=== PATIENT | female | born 1995 | race Caucasian/White ===

== ENCOUNTER 2020-02-09 03:14 | Emergency (ER) | payer BC, OTHER ==
[2020-02-09] MEDS ORDERED: ONDANSETRON 4 MG/2 ML VIAL ONE (04:26)
[2020-02-09] MEDS ORDERED: NA CHLORIDE 0.9% 2,000 ML ONE (04:26)
[2020-02-09 04:58] LABS: Absolute Lymphocytes (CBC) 1.2 K/uL (0.7-4.9); Basophils % 0.3 % (0-1.3); Hematocrit 40.2 % (36.0-45.0); Lymphocytes % 9.7 % (15.3-44.8); MPV 7.8 fL (7.6-11.3)
[2020-02-09 05:32] LABS: ALT/SGPT 27 U/L (12-78); AST/SGOT 22 U/L (15-37); Albumin 3.8 g/dL (3.4-5.0); Alkaline Phosphatase 56 U/L (45-117); BUN Blood Urea Nitrogen 11 mg/dL (7-18); Bicarbonate 22 mmol/L (21-32); Bilirubin Direct 0.1 mg/dL (0-0.2); Bilirubin Total 0.7 mg/dL (0.2-1.0); Glucose Level 111 mg/dL (74-106); Lipase 125 U/L (73-393); Potassium 3.5 mmol/L (3.5-5.1); Protein, Total 8.3 g/dL (6.4-8.2); Sodium Level 134 mmol/L (136-145); Troponin (Emerg Dept Use Only) < 0.02 ng/mL (0.0-0.045)
[2020-02-09 05:40] LABS: Protime INR 1.21
[2020-02-09 06:20] LABS: Urine Blood 2+ (NEG); Urine Glucose NEGATIVE (NEG); Urine Protein 1+ (NEG)
[2020-02-09 06:21] LABS: Urine Culture Reflex Order REFLEXED
[2020-02-09 06:22] LABS: Urine Bacteria 20-50 /HPF (<20)
--- NOTE | 2020-02-09 06:33 | EDPHYS ---
Physician Documentation [facility] Name: Miranda Cruz Age: 24 yrs Sex: Female : 1995 Arrival Date: 02/09/2020 Time: 03:17 Bed 7 Private MD: ED Physician Fernando Diana HPI: 02/08 04:29 This 24 yrs old Female presents to ER via Wheelchair with complaints of pkl Passed Out Prior To Arrival, Fever, Dizziness. 04:29 The patient has experienced syncope, became unresponsive. Onset: The symptoms/episode pkl began/occurred 2 day(s) ago. Associated signs and symptoms: Pertinent positives: nausea, vomiting, fever, chills, sore throat, vaginal sores and pain. Patient said she had 2 episodes of syncope, one yesterday and one tonight. Room mate found her on the floor tonight. Uncertain how long she passed out.. 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 - Social history:: Smoking status: Patient denies any tobacco usage or history of. ROS: 04:29 Eyes: Negative for injury, pain, redness, and discharge. pkl 04:29 ENT: Positive for sore throat. 04:29 Neck: Negative for stiffness. 04:29 Cardiovascular: Negative for chest pain. 04:29 Respiratory: Negative for cough, shortness of breath. 04:29 Abdomen/GI: Positive for nausea and vomiting. 04:29 Back: Negative for acute changes. 04:29 : Negative for urinary symptoms. 04:29 : Positive for vaginal sores and pain. 04:29 MS/extremity: Negative for acute changes. 04:29 Skin: Negative for rash. 04:29 Neuro: Positive for syncope. Exam: 04:29 Abdomen/GI: Bowel sounds: normal, Palpation: abdomen is soft and non-tender, in all pkl quadrants. 04:29 Head/Face: Normocephalic, atraumatic. Eyes: Pupils equal round and reactive to light, extra-ocular motions intact. Lids and lashes normal. Conjunctiva and sclera are non-icteric and not injected. Cornea within normal limits. Periorbital areas with no swelling, redness, or edema. 04:29 ENT: Posterior pharynx: erythema, that is mild. 04:29 Neck: Exam negative for nuchal rigidity. 04:29 Chest/axilla: Exam negative for acute changes. 04:29 Cardiovascular: Rate: tachycardic, actual rate is 100 bpm, Rhythm: regular. 04:29 ECG was reviewed by the Attending Physician. 04:29 Respiratory: the patient does not display signs of respiratory distress, Respirations: normal, Breath sounds: are clear throughout. 04:29 Abdomen/GI: Bowel sounds: normal, Palpation: abdomen is soft and non-tender, in all quadrants. 04:29 Back: Exam negative for acute changes. 04:29 : Pelvic Exam: External exam: herpes lesions noted. 04:29 Musculoskeletal/extremity: Exam is negative for acute changes. 04:29 Skin: Exam negative for rash. 04:29 Neuro: Orientation: is normal, Mentation: is normal, Memory: is normal, Cranial nerves: grossly normal, Motor: is normal, Sensation: is normal. Vital Signs: 03:30 BP 123 / 66; Pulse 100; Resp 17; Temp 99.5; Pulse Ox 96% on R/A; tt3 05:12 BP 115 / 86; Pulse 79; Resp 18; Pulse Ox 97% ; ea 05:49 BP 128 / 76; Pulse 96; Resp 18; Pulse Ox 96% ; ea 06:08 BP 106 / 52; Pulse 94; Resp 16; Pulse Ox 98% ; ea MDM: 03:54 Patient medically screened. pkl 06:27 Data reviewed: vital signs, nurses notes, lab test result(s), radiologic studies, CT pkl scan, plain films. ED course: Patient feeling better. Discussed lab and imaging studies with patient. Advised patient to stay home until Covid - 19 test is available. Patient understood instructions. 02/08 03:43 Order name: COVID-19 02/08 03:43 Order name: Flu; Complete Time: 05:57 ea 02/08 03:43 Order name: Strep; Complete Time: 05:57 02/08 03:45 Order name: Blood Culture Adult (2) 02/08 03:45 Order name: BMP; Complete Time: 05:37 02/08 03:45 Order name: C-Reactive Protein; Complete Time: 05:37 02/08 03:45 Order name: CBC with Diff; Complete Time: 05:17 02/08 03:45 Order name: Ferritin; Complete Time: 05:37 02/08 03:45 Order name: Lactate; Complete Time: 05:17 02/08 03:45 Order name: LFT's; Complete Time: 05:37 02/08 03:45 Order name: Lipase; Complete Time: 05:37 02/08 03:45 Order name: Procalcitonin; Complete Time: 05:57 02/08 03:45 Order name: PT-INR; Complete Time: 05:41 02/08 03:43 Order name: CXR XRAY 02/08 03:45 Order name: Ptt, Activated; Complete Time: 05:41 02/08 03:45 Order name: Troponin (emerg Dept Use Only); Complete Time: 05:37 02/08 03:45 Order name: Urine Microscopic Only; Complete Time: 06:23 02/08 03:45 Order name: EKG; Complete Time: 03:45 02/08 04:43 Order name: CT Head Brain wo Cont pkl 02/08 05:51 Order name: Throat Culture [facility] 02/08 06:06 Order name: Miscellaneous Micro Reference [facility] 02/08 06:17 Order name: Urine --Ancillary (enter results); Complete Time: 06:23 02/08 06:17 Order name: Urine Dipstick--Ancillary (enter results); Complete Time: 06:23 02/08 06:24 Order name: Urine Culture [facility] 02/08 03:43 Order name: Droplet/Contact Precautions; Complete Time: 05:58 02/08 03:43 Order name: Labs collected and sent; Complete Time: 04:54 02/08 03:43 Order name: O2 Per Protocol; Complete Time: 04:54 02/08 03:45 Order name: Cardiac monitoring; Complete Time: 04:54 02/08 03:45 Order name: EKG - Nurse/Tech; Complete Time: 03:51 02/08 03:45 Order name: IV Start; Complete Time: 04:54 02/08 03:45 Order name: Urine Dipstick-Ancillary (obtain specimen); Complete Time: 05:57 ea Administered Medications: 04:45 Drug: NS 0.9% 1000 ml Route: IV; Rate: 1000 ml; Site: right forearm; ea 05:58 Follow up: Response: No adverse reaction; IV Status: Completed infusion; IV Intake: ea 1000ml 04:45 Drug: NS 0.9% 1000 ml Route: IV; Rate: 125 ml/hr; Site: right forearm; ea 04:45 Drug: Zofran (Ondansetron) 4 mg Route: IVP; Site: right forearm; ea 05:57 Follow up: Response: No adverse reaction; Nausea is decreased ea 06:54 Drug: Cipro 500 mg Route: PO; ea 06:54 Follow up: Response: Medication administered at discharge. ea Disposition: 02/09/20 06:32 Discharged to Home. Impression: Syncope. Fever. Chills. Urinary tract infection. Herpes genitalia. - Condition is Stable. - Prescriptions for Cipro 500 mg Oral Tablet - take 1 tablet by ORAL route every 12 hours for 7 days; 14 tablet. Acyclovir 400 mg Oral Tablet - take 1 tablet by ORAL route every 8 hours for 10 days; 30 tablet. - Medication Reconciliation Form, Thank You Letter, Antibiotic Education, Prescription Opioid Use form. - Follow up: Private Physician; When: 2 - 3 days; Reason: Re-evaluation by your physician. - Problem is new. - Symptoms have improved. Signatures: Dispatcher [employer] [facility] Fernando Diana MD MD pkl Antunez, Elena RN KARSTEN patton Corrections: (The following items were deleted from the chart) 04:59 03:45 D-DIMER+COAG.LAB.BRZ ordered. EDCT EDMS 06:06 04:58 Miscellaneous Lab Test+R.LAB.BRZ ordered. [facility] EDMS 06:56 06:32 02/09/2020 06:32 Discharged to Home. Impression: Syncope. Fever. Chills. Urinary ea tract infection. Herpes genitalia. Condition is Stable. Forms are Medication Reconciliation Form, Thank You Letter, Antibiotic Education, Prescription Opioid Use. Follow up: Private Physician; When: 2 - 3 days; Reason: Re-evaluation by your physician. Problem is new. Symptoms have improved. pkl
--- NOTE | 2020-02-09 06:33 | ER ---
Nurse's Notes [facility] Name: Miranda Cruz Age: 24 yrs Sex: Female : 1995 Arrival Date: 02/09/2020 Time: 03:17 Bed 7 Private MD: Diagnosis: Syncope. Fever. Chills. Urinary tract infection. Herpes genitalia Presentation: 02/08 03:46 Chief complaint: Patient states: Reports feeling dizzy, fever, nausea and vomiting for ea the past three days. Reports she passed out prior to arrival. Coronavirus screen: Patient reports shortness of breath or difficulty breathing. Patient reports a measured and/or subjective temperature greater than 100.4F. Ebola Screen: No symptoms or risks identified at this time. Initial Sepsis Screen: Does the patient meet any 2 criteria? HR > 90 bpm. Does the patient have a suspected source of infection? No. Patient's initial sepsis screen is negative. Risk Assessment: Do you want to hurt yourself or someone else? Patient reports no desire to harm self or others. Onset of symptoms was February 09, 2020. 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 - Social history:: Smoking status: Patient denies any tobacco usage or history of. Screenin:31 Abuse screen: Denies threats or abuse. Nutritional screening: No deficits noted. ea Tuberculosis screening: No symptoms or risk factors identified. 03:49 Fall Risk None identified. ea Assessment: 04:00 General: Appears uncomfortable, Behavior is appropriate for age. Pain: Complains of ea pain in groin. Neuro: Level of Consciousness is awake, alert, obeys commands, Oriented to person, place, time. Cardiovascular: Patient's skin is warm and dry. Respiratory: Airway is patent Respiratory effort is even, unlabored, Respiratory pattern is regular, symmetrical. : Lesions noted Reports pain genitalia. Derm: Skin is dry, Skin is pale, Skin temperature is warm. 05:11 Reassessment: Patient and/or family updated on plan of care and expected duration. Pain ea level reassessed. Patient is alert, oriented x 3, equal unlabored respirations, skin warm/dry/pink. 06:08 Reassessment: Patient and/or family updated on plan of care and expected duration. Pain ea level reassessed. Patient is alert, oriented x 3, equal unlabored respirations, skin warm/dry/pink. 06:55 Reassessment: Patient and/or family updated on plan of care and expected duration. Pain ea level reassessed. Patient is alert, oriented x 3, equal unlabored respirations, skin warm/dry/pink. Discharge instruction given to patient, verbalized the understanding of instruction. Pt left ED ambulatory tolerating well . Vital Signs: 03:30 BP 123 / 66; Pulse 100; Resp 17; Temp 99.5; Pulse Ox 96% on R/A; tt3 05:12 BP 115 / 86; Pulse 79; Resp 18; Pulse Ox 97% ; ea 05:49 BP 128 / 76; Pulse 96; Resp 18; Pulse Ox 96% ; ea 06:08 BP 106 / 52; Pulse 94; Resp 16; Pulse Ox 98% ; ea ED Course: 03:17 Patient arrived in ED. bp1 03:30 Kylee Walton, KARSTEN is Primary Nurse. ea 03:48 Triage completed. ea 03:48 Patient has correct armband on for positive identification. Bed in low position. Call ea light in reach. Side rails up X2. 03:48 Arm band placed on right wrist. Patient placed in an exam room, on a stretcher, on ea pulse oximetry. 03:54 Fernando Diana MD is Attending Physician. pkl 04:15 CXR XRAY In Process Unspecified. EDMS 04:25 Inserted saline lock: 20 gauge in right forearm, using aseptic technique. Blood ea collected. 05:17 CT Head Brain wo Cont In Process Unspecified. EDMS 06:55 No provider procedures requiring assistance completed. IV discontinued, intact, ea bleeding controlled, No redness/swelling at site. Pressure dressing applied. Administered Medications: 04:45 Drug: NS 0.9% 1000 ml Route: IV; Rate: 1000 ml; Site: right forearm; ea 05:58 Follow up: Response: No adverse reaction; IV Status: Completed infusion; IV Intake: ea 1000ml 04:45 Drug: NS 0.9% 1000 ml Route: IV; Rate: 125 ml/hr; Site: right forearm; ea 04:45 Drug: Zofran (Ondansetron) 4 mg Route: IVP; Site: right forearm; ea 05:57 Follow up: Response: No adverse reaction; Nausea is decreased ea 06:54 Drug: Cipro 500 mg Route: PO; ea 06:54 Follow up: Response: Medication administered at discharge. ea Intake: 05:58 IV: 1000ml; Total: 1000ml. ea Outcome: 06:32 Discharge ordered by . bola 06:55 Discharged to home ambulatory, with family. ea 06:55 Condition: stable 06:55 Discharge instructions given to patient, Instructed on discharge instructions, follow up and referral plans. medication usage, Demonstrated understanding of instructions, follow-up care, medications, Prescriptions given X 2. 06:56 Patient left the ED. ea Addendum: 02/14/2020 11:47 Addendum: COVID-19 Result: Negative result given to RN to notify pt. Attempted to d m5 contact pt regarding negative COVID-19 swab results. Left voice mail. 11:51 Addendum: COVID-19 Result: Negative result given to RN to notify pt. Notified pt of d m5 negative COVID 19 swab results. Pt advised that even with a negative test result they should remain in isolation until symptom free for 3 days without medication. Pt also advised to return to the ED for worsening symptoms. Signatures: Dispatcher [employer] Nathalie Ramirez RN RN dm5 Lam, Pin, MD MD pkl Antunez, Elena, RN RN ea Paniauga, Brittany bp1 Trim, Marcial tt3
[2020-02-09] MEDS ORDERED: CIPROFLOXACIN HCL 500 MG TAB ONE (06:40)
[2020-02-09 07:14] VITALS: TEMP 99.5
[2020-02-09 07:21] VITALS: BP 106/52; O2SAT 98
--- NOTE | 2020-02-09 08:24 | RAD REPORT ---
EXAM DESCRIPTION: RAD - Chest Single View - 02/09/2020 4:15 am CLINICAL HISTORY: COUGH Chest pain. COMPARISON: No comparisons FINDINGS: Portable technique limits examination quality. The lungs are grossly clear. The heart is normal in size. No displaced fractures. IMPRESSION: No acute intrathoracic process suspected.
--- NOTE | 2020-02-09 10:22 | RAD REPORT ---
EXAM DESCRIPTION: CT Head Without Intravenous Contrast CLINICAL HISTORY: The patient is 24 years old and is Female; Fever;Syncope TECHNIQUE: Axial computed tomography images of the head/brain without intravenous contrast. Sagitt al and coronal reformatted images were created and reviewed. This CT exam was performed using one o r more of the following dose reduction techniques: automated exposure control, adjustment of the mA and/or kV according to patient size, and/or use of iterative reconstruction technique. COMPARISON: No relevant prior studies available. FINDINGS: BRAIN: Unremarkable. The webb-white matter differentiation is preserved . No hemorrhag e. No significant white matter disease. No edema. No extra-axial fluid collections. VENTRICLES: Unremarkable. No ventriculomegaly. BONES/JOINTS: No acute fracture. SOFT TISSUES: Unremarkable. SINUSES: Unremarkable as visualized. No acute sinusitis. MASTOID AIR CELLS: Unremarkable as visualized. No mastoid effusion. ORBITS: Unremarkable as visualized. IMPRESSION: No acute intracranial findings. Electronically signed by: Isha Bosch MD 02/09/2020 5:46 AM CDT Due to temporary technical issues with the PACS/Fluency reporting system, reports are being signed by the in house radiologist without review as a courtesy to ensure prompt reporting. The interpreting r adiologist is fully responsible for the content of the report.
--- NOTE | 2020-02-10 07:35 | EKG ---
Test Date: 2020-02-09 Test Time: 03:42:10 Clerical Assistant: SUSAN MEASUREMENT RESULTS: Intervals: Rate: 97 GA: 142 QRSD: 76 QT: 336 QTc: 426 [place]: P: 58 GA: 142 QRS: 23 T: 46 INTERPRETIVE STATEMENTS: Normal sinus rhythm Normal ECG Compared to ECG 05/11/2015 19:51:44 No significant changes Electronically Signed On 02-10-20 07:32:39 CDT by Javy Nieves
== END 2020-02-09 06:56 | disposition home or self-care (01) ==
LOC: ER 03:14
DX: N39.0 Urinary tract infection, site not specified (principal); Z20.828 Contact with and (suspected) exposure to other viral communicable diseases; R50.9 Fever, unspecified; A60.00 Herpesviral infection of urogenital system, unspecified
CPT/HCPCS: 96361; 93005; 87040 ×2; 87070; 87088; 85025; 87086; 80048; 36415; 81025; 85610; 80076; 87081; 83605; 85730; 84484; 82728; 83690; 84145; 86140; 87804 ×2; 70450; 71045; 96374; 99284; U0001; J7030; J2405; 81003; 81015

== ENCOUNTER 2020-08-25 12:57 | Emergency (ER) | payer BC, SELFPAY ==
[2020-08-25 14:59] LABS: Absolute Lymphocytes (CBC) 2.7 K/uL (0.7-4.9); Basophils % 0.6 % (0-1.3); Hematocrit 43.3 % (36.0-45.0); Lymphocytes % 35.7 % (15.3-44.8); MPV 8.3 fL (7.6-11.3); RBC Red Blood Cell Count 4.77 M/uL (3.86-4.86)
[2020-08-25] MEDS ORDERED: ONDANSETRON 4 MG/2 ML VIAL ONE (15:37)
[2020-08-25] MEDS ORDERED: NA CHLORIDE 0.9% 1,000 ML ONE (15:37)
[2020-08-25 15:47] LABS: ALT/SGPT 36 U/L (12-78); AST/SGOT 13 U/L (15-37); Albumin 3.8 g/dL (3.4-5.0); Alkaline Phosphatase 46 U/L (45-117); BUN Blood Urea Nitrogen 11 mg/dL (7-18); Bicarbonate 29 mmol/L (21-32); Bilirubin Direct < 0.1 mg/dL (0-0.2); Bilirubin Total 0.3 mg/dL (0.2-1.0); Glucose Level 80 mg/dL (74-106); Lipase 175 U/L (73-393); Protein, Total 7.4 g/dL (6.4-8.2); Sodium Level 142 mmol/L (136-145)
--- NOTE | 2020-08-25 16:15 | EDPHYS ---
Physician Documentation [facility] Name: Miranda Cruz Age: 24 yrs Sex: Female : 1995 Arrival Date: 08/25/2020 Time: 13:00 Bed 10 Private MD: ED Physician Kp Fair HPI: 08/25 16:13 This 24 yrs old Female presents to ER via Ambulatory with complaints of kb Vomiting. 16:13 The patient presents to the emergency department with nausea, vomiting. Onset: The kb symptoms/episode began/occurred 4 day(s) ago. Possible causes: unknown. The symptoms are aggravated by nothing. The symptoms are alleviated by nothing. Associated signs and symptoms: Pertinent positives: nausea, vomiting. Severity of symptoms: At their worst the symptoms were moderate in the emergency department the symptoms are unchanged. The patient has not experienced similar symptoms in the past. The patient has not recently seen a physician. Pt reports she started her cycle for the first time in many years 4 days ago. States she has had lower abd cramping, nausea and vomiting since then.. SOUND TESTER: 17:03 LMP N/A - control method aa5 Historical: - Allergies: 13:29 NKA; ll1 - PMHx: 13:29 Stomach ulcer; ll1 - PSHx: 13:29 None; ll1 - Immunization history:: Flu vaccine is not up to date. - Social history:: Smoking status: Reported history of juuling and/or vaping. ROS: 16:09 Constitutional: Negative for fever, chills, and weight loss, Cardiovascular: Negative kb for chest pain, palpitations, and edema, Respiratory: Negative for shortness of breath, cough, wheezing, and pleuritic chest pain, Back: Negative for injury and pain, MS/Extremity: Negative for injury and deformity, Skin: Negative for injury, rash, and discoloration, Neuro: Negative for headache, weakness, numbness, tingling, and seizure. 16:09 Abdomen/GI: Positive for nausea and vomiting. 16:09 : Positive for vaginal bleeding. Exam: 16:09 Constitutional: This is a well developed, well nourished patient who is awake, alert, kb and in no acute distress. Head/Face: Normocephalic, atraumatic. Chest/axilla: Normal chest wall appearance and motion. Nontender with no deformity. No lesions are appreciated. Cardiovascular: Regular rate and rhythm with a normal S1 and S2. No gallops, murmurs, or rubs. Normal PMI, no JVD. No pulse deficits. Respiratory: Lungs have equal breath sounds bilaterally, clear to auscultation and percussion. No rales, rhonchi or wheezes noted. No increased work of breathing, no retractions or nasal flaring. Abdomen/GI: Soft, non-tender, with normal bowel sounds. No distension or tympany. No guarding or rebound. No evidence of tenderness throughout. Skin: Warm, dry with normal turgor. Normal color with no rashes, no lesions, and no evidence of cellulitis. MS/ Extremity: Pulses equal, no cyanosis. Neurovascular intact. Full, normal range of motion. Neuro: Awake and alert, GCS 15, oriented to person, place, time, and situation. Cranial nerves II-XII grossly intact. Motor strength 5/5 in all extremities. Sensory grossly intact. Cerebellar exam normal. Normal gait. Vital Signs: 13:29 BP 116 / 86; Pulse 82; Resp 17; Temp 98.8; Pulse Ox 100% ; Weight 74.84 kg; Height 5 ll1 ft. 2 in. (157.48 cm); Pain 5/10; 16:04 BP 109 / 59; Pulse 73; Resp 16 S; Pulse Ox 100% on R/A; aa5 13:29 Body Mass Index 30.18 (74.84 kg, 157.48 cm) ll1 MDM: 14:34 Patient medically screened. kb 16:13 Data reviewed: vital signs, nurses notes. Data interpreted: Pulse oximetry: on room air kb is 100 %. Interpretation: normal. Counseling: I had a detailed discussion with the patient and/or guardian regarding: the historical points, exam findings, and any diagnostic results supporting the discharge/admit diagnosis, lab results, the need for outpatient follow up, a family practitioner, to return to the emergency department if symptoms worsen or persist or if there are any questions or concerns that arise at home. 08/25 14:24 Order name: Basic Metabolic Panel; Complete Time: 15:51 kb 08/25 14:24 Order name: CBC with Diff; Complete Time: 15:05 kb 08/25 14:24 Order name: Hepatic Function; Complete Time: 15:51 kb 08/25 14:24 Order name: Lipase; Complete Time: 15:51 kb 08/25 14:24 Order name: IV Saline Lock; Complete Time: 15:26 kb 08/25 14:24 Order name: Labs collected and sent; Complete Time: 15:06 kb 08/25 15:07 Order name: Labs - recollect needed: green top; Complete Time: 15:26 eb Administered Medications: 15:20 Drug: Zofran (Ondansetron) 4 mg {Note: administered by MEDICAL DERMATOLOGIST.} Route: IVP; Site: left aa5 forearm; 17:00 Follow up: Response: No adverse reaction; Nausea is decreased; RASS: Alert and Calm (0) aa5 15:20 Drug: NS 0.9% 1000 ml Route: IV; Rate: 1000 ml; Site: left forearm; aa5 17:00 Follow up: Response: No adverse reaction; RASS: Alert and Calm (0); IV Status: aa5 Completed infusion; IV Intake: 1000ml Disposition: 17:19 Co-signature as Attending Physician, Kp Fair MD I agree with the assessment and kdr plan of care. Disposition: 08/25/20 16:15 Discharged to Home. Impression: Nausea and vomiting. - Condition is Stable. - Discharge Instructions: Nausea and Vomiting, Adult, [id number]. - Prescriptions for Zofran 4 mg Oral Tablet - take 1 tablet by ORAL route every 6 hours As needed; 20 tablet. - Medication Reconciliation Form, Thank You Letter, Antibiotic Education, Prescription Opioid Use form. - Follow up: Emergency Department; When: As needed; Reason: Worsening of condition. Follow up: Private Physician; When: 2 - 3 days; Reason: Recheck today's complaints, Continuance of care, Re-evaluation by your physician. Signatures: Dispatcher [employer] EDMi Jarvis, ALYSA-C FINISHER SCREWDOWN-Kp Su MD MD [facility] Miladis Madden RN RN aa5 Liliam Devlin Lynsay RN RN ll1 Corrections: (The following items were deleted from the chart) 17:03 16:15 08/25/2020 16:15 Discharged to Home. Impression: Nausea and vomiting. Condition aa5 is Stable. Forms are Medication Reconciliation Form, Thank You Letter, Antibiotic Education, Prescription Opioid Use. Follow up: Emergency Department; When: As needed; Reason: Worsening of condition. Follow up: Private Physician; When: 2 - 3 days; Reason: Recheck today's complaints, Continuance of care, Re-evaluation by your physician. kb
--- NOTE | 2020-08-25 16:15 | ER ---
Nurse's Notes [facility] Name: Miranda Cruz Age: 24 yrs Sex: Female : 1995 Arrival Date: 08/25/2020 Time: 13:00 Bed 10 Private MD: Diagnosis: Nausea and vomiting Presentation: 08/25 13:29 Chief complaint: Patient states: Lower abd pain with N/V/D for 3 days. Low grade fever ll1 last night. Blood in vomit last night. Coronavirus screen: Client denies travel out of the [place] in the last 14 days. cough unrelated to allergies, diarrhea, fatigue, headache, nausea, shaking with chills, shortness of breath, vomiting. Client presents with at least one sign or symptom that may indicate coronavirus-19. Standard/surgical mask placed on the client. Ebola Screen: Patient denies travel to an Ebola-affected area in the 21 days before illness onset. Initial Sepsis Screen: Does the patient meet any 2 criteria? No. Patient's initial sepsis screen is negative. Does the patient have a suspected source of infection? Yes: Acute abdominal pain. Risk Assessment: Do you want to hurt yourself or someone else? Patient reports no desire to harm self or others. Onset of symptoms was August 23, 2020. 13:29 Method Of Arrival: Ambulatory [facility] 13:29 Acuity: VALENTINE 3 ll1 Triage Assessment: 17:01 General: Appears in no apparent distress. Behavior is calm, cooperative, appropriate aa5 for age. Pain: Denies pain. GI: Abdomen is round Bowel sounds present X 4 quads. Abd is soft and non tender X 4 quads. Reports cramping, nausea, vomiting. 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 - Social history:: Smoking status: Reported history of juuling and/or vaping. Screenin:01 Abuse screen: Denies threats or abuse. Nutritional screening: No deficits noted. aa5 Tuberculosis screening: No symptoms or risk factors identified. Fall Risk Total Brown Fall Scale indicates No Risk (0-24 pts). Assessment: 14:50 General: Appears uncomfortable, Behavior is calm, cooperative. Pain: Complains of pain aa5 in right lower quadrant and left lower quadrant Pain currently is 5 out of 10 on a pain scale. Quality of pain is described as aching, crampy, Is continuous. Neuro: Level of Consciousness is awake, alert, obeys commands, Oriented to person, place, time, situation. Cardiovascular: Heart tones S1 S2 present Rhythm is regular. Respiratory: Airway is patent Respiratory effort is even, unlabored, Respiratory pattern is regular, symmetrical. GI: Abdomen is round non-distended, Bowel sounds present X 4 quads. Abd is soft and non tender X 4 quads. Reports diarrhea, nausea, vomiting. : No signs and/or symptoms were reported regarding the genitourinary system. EENT: No signs and/or symptoms were reported regarding the EENT system. Derm: Skin is pink, warm \T\ dry. Musculoskeletal: Range of motion: intact in all extremities. 15:20 Reassessment: Patient is alert, oriented x 3, equal unlabored respirations, skin aa5 warm/dry/pink. 16:05 Reassessment: Patient is alert, oriented x 3, equal unlabored respirations, skin aa5 warm/dry/pink. Patient states feeling better. Patient states symptoms have improved. 16:55 Reassessment: No changes from previously documented assessment. Patient states feeling aa5 better. Vital Signs: 13:29 BP 116 / 86; Pulse 82; Resp 17; Temp 98.8; Pulse Ox 100% ; Weight 74.84 kg; Height 5 ll1 ft. 2 in. (157.48 cm); Pain 5/10; 16:04 BP 109 / 59; Pulse 73; Resp 16 S; Pulse Ox 100% on R/A; aa5 13:29 Body Mass Index 30.18 (74.84 kg, 157.48 cm) ll1 ED Course: 13:00 Patient arrived in ED. mr 13:28 Arm band placed on. ll1 13:31 Triage completed. ll1 14:23 Mi Pickering FNP-C [facility]. kb 14:23 Kp Fair MD is Attending Physician. kb 14:34 Miladis Madden, KARSTEN is Primary Nurse. aa5 15:20 Lab(s) recollected, by me, sent to lab. Inserted saline lock: 20 gauge in left forearm, aa5 using aseptic technique. Blood collected. 16:59 No provider procedures requiring assistance completed. IV discontinued, intact, patient [id number] took out her own IV. Catheter intact. Gait steady our of ED. 17:01 Patient has correct armband on for positive identification. Bed in low position. Call aa5 light in reach. Side rails up X 1. Cardiac monitoring not applicable on this patient. Administered Medications: 15:20 Drug: Zofran (Ondansetron) 4 mg {Note: administered by ASSOCIATE CREATIVE DIRECTOR.} Route: IVP; Site: left aa5 forearm; 17:00 Follow up: Response: No adverse reaction; Nausea is decreased; RASS: Alert and Calm (0) aa5 15:20 Drug: NS 0.9% 1000 ml Route: IV; Rate: 1000 ml; Site: left forearm; aa5 17:00 Follow up: Response: No adverse reaction; RASS: Alert and Calm (0); IV Status: aa5 Completed infusion; IV Intake: 1000ml Intake: 17:00 IV: 1000ml; Total: 1000ml. aa5 Outcome: 16:15 Discharge ordered by MD. white 17:01 Discharged to home ambulatory. aa5 17:01 Condition: stable 17:01 Discharge instructions given to patient, Instructed on discharge instructions, follow up and referral plans. Demonstrated understanding of instructions, follow-up care, medications, Patient verbalized understanding of Isaac Pickering's verbal discharge instructions. Took out her own IV, and left ER. Gait steady. Did not wait for printed instructions or prescription. 17:03 Patient left the ED. aa5 Signatures: Mi Pickering, RANDOLPH LOCK AND DAM OPERATOR-Carly Swift mr Madden, Miladis, RN RN aa5 Jazmín Degroot, RN RN ll1 Corrections: (The following items were deleted from the chart) 22:41 16:55 Reassessment: No changes from previously documented assessment. Patient and/or aa5 family updated on plan of care and expected duration. Pain level reassessed. Patient states feeling better. aa5
[2020-08-25 17:08] VITALS: TEMP 98.8; O2SAT 100
[2020-08-25 17:09] VITALS: BP 109/59
== END 2020-08-25 17:03 | disposition home or self-care (01) ==
LOC: ER 12:57
DX: R11.2 Nausea with vomiting, unspecified (principal)
CPT/HCPCS: 36415; 80048; 80076; 83690; 85025; 96361; 96374; 99283; J2405; J7030

== ENCOUNTER 2022-04-15 09:31 | Emergency (ER) | payer BC, SELFPAY ==
[2022-04-15] MEDS ORDERED: KETOROLAC 30 MG/ML INJ ONE (10:27)
[2022-04-15] MEDS ORDERED: CYCLOBENZAPRINE 10 MG TAB ONE (10:27)
--- NOTE | 2022-04-15 10:30 | RAD REPORT ---
EXAM DESCRIPTION: CT - C Spine Wo Con - 04/15/2022 10:10 am CLINICAL HISTORY: neck pain Trauma, neck injury, pain and radiculopathy COMPARISON: <Comparisons> FINDINGS: The cervical vertebral body heights and disc spaces are maintained. No evidence of acute cervical spine fracture or subluxation. Prevertebral soft tissues are normal in thickness. Mildly prominent lymph nodes are present bilateral jugular chain, nonspecific. IMPRESSION: Negative for acute cervical spine abnormality. Mild nonspecific bilateral neck lymphadenopathy. Recommend CT soft tissue neck follow-up imaging in 6 months to ensure resolution. All CT scans are performed using dose optimization technique as appropriate and may include automated exposure control or mA/KV adjustment according to patient size.
--- NOTE | 2022-04-15 10:46 | EDPHYS ---
Physician Documentation [facility] Name: Miranda Cruz Age: 26 yrs Sex: Female : 1995 Arrival Date: 04/15/2022 Time: 09:32 Bed DIS1 Private MD: ED Physician Gael Navarro HPI: 04/15 11:48 This 26 yrs old Female presents to ER via Ambulatory with complaints of Neck Pain, kb <24hrs Old. 11:48 The patient or guardian complains of pain, swelling, tenderness. The symptoms are kb located on the left trapezius and left mid cervical area. Onset: The symptoms/episode began/occurred 2 day(s) ago, and became worse. Context: The problem was sustained at home, The neck injury/problem resulted from "sleeping wrong". Associated signs and symptoms: The patient has no apparent associated signs or symptoms, The patient denies any alcohol use. The patient is not apparently intoxicated. No neurological symptoms were experienced by the patient prior to arrival in the emergency department. The pain does not radiate. Modifying factors: The symptoms are alleviated by nothing. the symptoms are aggravated by movement, pressure. Severity of symptoms: At their worst the symptoms were moderate, in the emergency department the symptoms are unchanged. The patient has not experienced similar symptoms in the past. The patient has not recently seen a physician. 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 - Social history:: Smoking status: Patient denies any tobacco usage or history of. ROS: 11:47 Constitutional: Negative for fever, chills, and weight loss. kb 11:47 Neck: Positive for pain with movement, pain at rest, swelling, tenderness. 11:47 All other systems are negative. Exam: 11:47 Constitutional: This is a well developed, well nourished patient who is awake, alert, kb and in no acute distress. Head/Face: Normocephalic, atraumatic. ENT: Moist Mucous membranes Cardiovascular: Regular rate and rhythm with a normal S1 and S2. No gallops, murmurs, or rubs. No pulse deficits. Respiratory: Respirations even and unlabored. No increased work of breathing. Talking in full sentences Abdomen/GI: Soft, non-tender. No distention Skin: Warm, dry with normal turgor. Normal color. MS/ Extremity: Pulses equal, no cyanosis. Neurovascular intact. Full, normal range of motion. Neuro: Awake and alert, GCS 15, oriented to person, place, time, and situation. Moves all extremities. Normal gait. Psych: Awake, alert, with orientation to person, place and time. Behavior, mood, and affect are within normal limits. 11:47 Neck: External neck: swelling, that is mild, of the left mid cervical area and left trapezius, tenderness, that is moderate, of the left mid cervical area and left trapezius, C-spine: appears grossly normal, ROM/movement: pain, that is moderate, with any movement, limited range of motion, that is mild, when rotating to the left, nuchal rigidity, is not appreciated. Vital Signs: 09:54 Resp 16; Weight 78.02 kg; Height 5 ft. 2 in. (157.48 cm); Pain 6/10; ss 10:08 BP 122 / 74; Pulse 59; Resp 14; Pulse Ox 100% on R/A; ss 10:15 Temp 98.2(TE); ss 09:54 Body Mass Index 31.46 (78.02 kg, 157.48 cm) ss MDM: 09:47 Patient medically screened. 11:48 Data reviewed: vital signs, nurses notes. Data interpreted: Pulse oximetry: on room air kb is 100 %. Interpretation: normal. Counseling: I had a detailed discussion with the patient and/or guardian regarding: the historical points, exam findings, and any diagnostic results supporting the discharge/admit diagnosis, radiology results, the need for outpatient follow up, a family practitioner, to return to the emergency department if symptoms worsen or persist or if there are any questions or concerns that arise at home. 11:48 Special discussion: I discussed with the patient the need to follow-up with the PCP/specialist for the noted incidental finding on X-ray/CT scanning. 04/15 09:48 Order name: CT C Spine 04/15 10:31 Order name: CT; Complete Time: 10:35 EDMS Administered Medications: 10:34 Drug: Ketorolac 30 mg Route: IM; Site: right deltoid; ss 11:04 Follow up: Response: No adverse reaction; Marked relief of symptoms; Pain is decreased ss 10:34 Drug: Flexeril (cyclobenzaprine) 10 mg Route: PO; ss 11:04 Follow up: Response: Marked relief of symptoms; Pain is decreased ss Disposition: 13:47 PA/UNDERCOVER AGENT's history reviewed, patient interviewed, and examined. I agree with assessment [id number] and care plan and confirm the diagnosis (es) above. Attestation: The patient's history, exam findings, diagnostics, and a summary of any interventions or procedures was reviewed in detail with Mi DICKSON. Disposition Summary: 04/15/22 10:46 Discharge Ordered Location: Home kb Condition: Stable kb Diagnosis - Left neck pain kb Followup: kb - With: Emergency Department - When: As needed - Reason: Worsening of condition Followup: kb - With: Private Physician - When: 2 - 3 days - Reason: Recheck today's complaints, Continuance of care, Re-evaluation by your physician Discharge Instructions: - Discharge Summary Sheet kb - Musculoskeletal Pain kb - Muscle Strain, [id number] kb Forms: - Medication Reconciliation Form kb - Thank You Letter kb - Antibiotic Education kb - Prescription Opioid Use kb - Work release form ss Prescriptions: - Cyclobenzaprine 10 mg Oral Tablet - take 1 tablet by ORAL route every 8 hours As needed; 15 tablet; Refills: 0, kb Product Selection Permitted - Diclofenac Sodium 75 mg Oral tablet,delayed release (DR/EC) - take 1 tablet by ORAL route 2 times per day As needed; 30 tablet; Refills: 0, kb Product Selection Permitted Signatures: Dispatcher [employer] EDMS Mi Pickering FNP-C FNP-Ckb Smirch, Shelby, RN RN Gael Verma MD MD [id number]
--- NOTE | 2022-04-15 10:46 | ER ---
Nurse's Notes [facility] Name: Miranda Cruz Age: 26 yrs Sex: Female : 1995 Arrival Date: 04/15/2022 Time: 09:32 Bed DIS1 Private MD: Diagnosis: Left neck pain Presentation: 04/15 09:54 Chief complaint: Patient states: neck pain x 2 days. Is progressively getting worse. ss Coronavirus screen: Client denies travel out of the [place] in the last 14 days. Ebola Screen: Patient denies exposure to infectious person. Patient denies travel to an Ebola-affected area in the 21 days before illness onset. Initial Sepsis Screen: Does the patient meet any 2 criteria? No. Patient's initial sepsis screen is negative. Does the patient have a suspected source of infection? No. Patient's initial sepsis screen is negative. Risk Assessment: Do you want to hurt yourself or someone else? Patient reports no desire to harm self or others. Onset of symptoms was April 13, 2022. 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 - Social history:: Smoking status: Patient denies any tobacco usage or history of. Screenin:00 Abuse screen: Denies threats or abuse. Denies injuries from another. Nutritional ss screening: No deficits noted. Tuberculosis screening: Never had TB. Fall Risk None identified. Assessment: 10:00 General: Appears uncomfortable, Behavior is calm, cooperative, Denies fever. Pain: ss Complains of pain in neck Pain currently is 9 out of 10 on a pain scale. Quality of pain is described as tender, Is continuous, Aggravated by increased activity, repositioning, ROM. Neuro: Level of Consciousness is awake, alert, obeys commands, Oriented to person, place, time, situation. Cardiovascular: Capillary refill < 3 seconds is brisk in bilateral fingers. Respiratory: Airway is patent Respiratory effort is even, unlabored, Respiratory pattern is regular, symmetrical. Derm: Skin is intact, is healthy with good turgor, Skin is dry, Skin is pink, warm \T\ dry. normal. Musculoskeletal: Circulation, motion, and sensation intact. Range of motion: intact in all extremities, Swelling absent. Vital Signs: 09:54 Resp 16; Weight 78.02 kg; Height 5 ft. 2 in. (157.48 cm); Pain 6/10; ss 10:08 BP 122 / 74; Pulse 59; Resp 14; Pulse Ox 100% on R/A; ss 10:15 Temp 98.2(TE); ss 09:54 Body Mass Index 31.46 (78.02 kg, 157.48 cm) ss ED Course: 09:32 Patient arrived in ED. rg4 09:40 Mi Pickering FNP-C [facility]. kb 09:40 Gael Navarro MD is Attending Physician. kb 09:52 Teena Vazquez RN is Primary Nurse. ss 09:55 Triage completed. ss 09:55 Arm band placed on right wrist. ss 10:00 Patient has correct armband on for positive identification. Bed in low position. Call ss light in reach. 10:48 No provider procedures requiring assistance completed. Patient did not have IV access ss during this emergency room visit. Administered Medications: 10:34 Drug: Ketorolac 30 mg Route: IM; Site: right deltoid; ss 11:04 Follow up: Response: No adverse reaction; Marked relief of symptoms; Pain is decreased ss 10:34 Drug: Flexeril (cyclobenzaprine) 10 mg Route: PO; ss 11:04 Follow up: Response: Marked relief of symptoms; Pain is decreased ss Medication: 10:00 VIS not applicable for this client. ss Outcome: 10:46 Discharge ordered by . kb 11:03 Discharged to home ambulatory. ss 11:03 Condition: good 11:03 Discharge instructions given to patient, family, Instructed on discharge instructions, follow up and referral plans. medication usage, Demonstrated understanding of instructions, follow-up care, medications, Prescriptions given X 2. 11:04 Patient left the ED. ss Signatures: Mi Pickering FNP-C FNP-Teena Scott RN RN Danielle Isabel rg4
[2022-04-15 11:23] VITALS: BP 122/74; O2SAT 100
[2022-04-15 11:25] VITALS: TEMP 98.2
== END 2022-04-15 11:04 | disposition home or self-care (01) ==
LOC: ER 09:31
DX: M54.2 Cervicalgia (principal)
CPT/HCPCS: 72125; 96372; 99283

== ENCOUNTER 2022-09-17 13:52 | Emergency (ER) | payer SELFPAY ==
[2022-09-17] MEDS ORDERED: ONDANSETRON 4 MG (ODT) TAB ONE (15:45)
[2022-09-17] MEDS ORDERED: IBUPROFEN 200 MG TAB PO ONE (15:45)
[2022-09-17 16:31] LABS: SARS-COV-2 RT PCR POSITIVE (NEGATIVE)
[2022-09-17 17:20] VITALS: BP 115/74; TEMP 97.8; O2SAT 100
--- NOTE | 2022-10-04 14:14 | EDPHYS ---
Physician Documentation [facility] Name: Miranda Cruz Age: 26 yrs Sex: Female : 1995 Arrival Date: 09/17/2022 Time: 13:58 Bed IW2 Private MD: ED Physician Melchor Mccormack HPI: 09/17 15:16 This 26 yrs old Female presents to ER via Ambulatory with complaints of Dizziness, ms3 Fever, Vomiting. 15:16 26-year-old female with past medical history of stomach ulcer presents for Sick, dizzy, ms3 vomiting and aching. Patient denies pain at this time. Patient endorses cough. Patient denies fever. 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 - Social history:: Smoking status: Patient denies any tobacco usage or history of. ROS: 15:16 Neck: Negative for injury, pain, and swelling, Cardiovascular: Negative for chest pain, ms3 and palpitations. Respiratory: Negative for shortness of breath, cough, wheezing, and pleuritic chest pain, Abdomen/GI: Negative for abdominal pain, nausea, vomiting, diarrhea, and constipation. 15:16 Skin: Negative for injury, rash, and discoloration. 15:16 Constitutional: Positive for body aches. 15:16 All other systems are negative. Exam: 15:16 Constitutional: This is a well developed, well nourished patient who is awake, alert, ms3 and in no acute distress. Head/Face: Normocephalic, atraumatic. Chest/axilla: Normal chest wall appearance and motion. Nontender with no deformity. Cardiovascular: Regular rate and rhythm with a normal S1 and S2. No gallops, murmurs, or rubs. Normal PMI, no JVD. No pulse deficits. Respiratory: Lungs have equal breath sounds bilaterally, clear to auscultation and percussion. No rales, rhonchi or wheezes noted. No increased work of breathing, no retractions or nasal flaring. Abdomen/GI: Soft, non-tender, with normal bowel sounds. No distension or tympany. No guarding or rebound. No evidence of tenderness throughout. Skin: Warm, dry with normal turgor. Normal color with no rashes, no lesions, and no evidence of cellulitis. MS/ Extremity: Pulses equal, no cyanosis. Neurovascular intact. Full, normal range of motion. Vital Signs: 14:24 BP 115 / 74; Pulse 78; Resp 20; Temp 97.8; Pulse Ox 100% ; Weight 79.83 kg; Height 5 mb9 ft. 2 in. ; 14:24 Body Mass Index 32.19 (79.83 kg, 157.48 cm) mb9 MDM: 14:33 Patient medically screened. ms3 15:16 Differential diagnosis: Flu vs COVID vs viral illness. ms3 16:40 Data reviewed: vital signs, nurses notes, lab test result(s), and as a result, I will ms3 discharge patient. I considered the following discharge prescriptions or medication management in the emergency department I discussed and recommended Over The Counter medications, Medications were administered in the Emergency Department. See MAR. Counseling: I had a detailed discussion with the patient and/or guardian regarding: the historical points, exam findings, and any diagnostic results supporting the discharge/admit diagnosis, lab results, the need for outpatient follow up, to return to the emergency department if symptoms worsen or persist or if there are any questions or concerns that arise at home. ED course: Discussed positive COVID results with patient. Patient to follow-up with primary care physician in 2 to 3 days. Patient understands agrees with plan. All questions were answered. Return precautions discussed include worsening symptoms, or any other concerns.. 09/17 15:07 Order name: COVID-19/FLU A+B ms3 09/17 16:31 Order name: COVID-19/FLU A+B; Complete Time: 16:31 EDMS Administered Medications: 15:48 Drug: Ibuprofen PO 600 mg Route: PO; iw 15:48 Drug: Ondansetron PO 4 mg Route: PO; iw Disposition Summary: 09/17/22 16:39 Discharge Ordered Location: Home ms3 Condition: Stable ms3 Diagnosis - SARS-associated coronavirus as the cause of diseases classified elsewhere ms3 - Vomiting ms3 Followup: ms3 - With: Junaid Duran, DO - When: 2 - 3 days - Reason: Recheck today's complaints Discharge Instructions: - Discharge Summary Sheet ms3 - COVID-19 ms3 - How to Protect Yourself and Others - [facility] (09/07/2021) ms3 - 10 Things You Can Do to Manage Your COVID-19 Symptoms at Home - [facility] (01/26/2021) ms3 Forms: - Work release form iw - Medication Reconciliation Form ms3 - Thank You Letter ms3 - Antibiotic Education ms3 - Prescription Opioid Use ms3 Prescriptions: - Zofran 4 mg Oral Tablet - take 1 tablet by ORAL route every 12 hours As needed; 20 tablet; Refills: 0, ms3 Product Selection Permitted Signatures: Dispatcher [employer] Saba Doe, RN RN Melchor Mary DO DO ms3 Carly Thomas RN RN mb9
--- NOTE | 2022-10-04 14:14 | ER ---
Nurse's Notes [facility] Name: Miranda Cruz Age: 26 yrs Sex: Female : 1995 Arrival Date: 09/17/2022 Time: 13:58 Bed IW2 Private MD: Diagnosis: SARS-associated coronavirus as the cause of diseases classified elsewhere;Vomiting Presentation: 09/17 14:24 Chief complaint: Patient states: "I've had body aches, fever, N/V, and diarrhea for the mb9 past 3-4 days. I can hardley get out of bed". Coronavirus screen: Vaccine status: Patient reports being unvaccinated. Ebola Screen: No symptoms or risks identified at this time. Initial Sepsis Screen: Does the patient meet any 2 criteria? No. Patient's initial sepsis screen is negative. Does the patient have a suspected source of infection? No. Patient's initial sepsis screen is negative. Risk Assessment: Do you want to hurt yourself or someone else? Patient reports no desire to harm self or others. Onset of symptoms was September 13, 2022. 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 - Social history:: Smoking status: Patient denies any tobacco usage or history of. Vital Signs: 14:24 BP 115 / 74; Pulse 78; Resp 20; Temp 97.8; Pulse Ox 100% ; Weight 79.83 kg; Height 5 mb9 ft. 2 in. ; 14:24 Body Mass Index 32.19 (79.83 kg, 157.48 cm) mb9 ED Course: 13:58 Patient arrived in ED. mr 14:15 Melchor Mccormack DO is Attending Physician. ms3 14:24 Arm band placed on. mb9 14:27 Triage completed. mb9 15:38 Saba Islas RN is Primary Nurse. iw 16:37 Duran, Junaid, DO is Referral Physician. ms3 Administered Medications: 15:48 Drug: Ibuprofen PO 600 mg Route: PO; iw 15:48 Drug: Ondansetron PO 4 mg Route: PO; iw Outcome: 16:39 Discharge ordered by . ms3 16:55 Patient left the ED. iw Signatures: Carly Pena Irene, RN RN iw Sims, Marcus, DO ms3 Carly Thomas RN RN mb9
== END 2022-09-17 16:55 | disposition home or self-care (01) ==
LOC: ER 13:52
DX: U07.1 COVID-19 (principal)
CPT/HCPCS: 0240U; 99282; Q0162

== ENCOUNTER 2024-06-28 20:16 | Emergency (ER) | payer SELFPAY ==
--- NOTE | 2024-06-28 22:46 | RAD REPORT ---
EXAMINATION: TWO VIEW CHEST XR CLINICAL INDICATION: Female, 28 years old. [facility] MAIN HEMOPTYSIS Bed: TECHNIQUE: 2 view radiographs of the chest were performed. COMPARISON: 02/09/2020 FINDINGS: The lungs are well inflated and clear. No pneumothorax or sizable effusion. The heart is normal in si ze. Mediastinal contours are unremarkable. IMPRESSION: No acute or significant abnormalities.
[2024-06-28 23:39] LABS: SARS-CoV-2 Antigen CONTROL BLUE LINE VIS/BG OK; SARS-CoV-2 Antigen Rapid Res Negative (Negative)
--- NOTE | 2024-06-28 23:47 | ER ---
Nurse's Notes [facility] Name: Miranda Cruz Age: 28 yrs Sex: Female : 1995 Arrival Date: 06/28/2024 Time: 20:16 Bed DX3 Private MD: Diagnosis: Acute upper respiratory infection, unspecified Presentation: 06/28 21:12 Chief complaint: Patient states: COUGH ONSET 4 DAYS AGO. PT ALSO STATES, "TODAY WHEN I cm10 COUGHED THERE WAS BLOOD AND A PIECE OF MY TONSIL. I HAVE ALSO BEEN RUNNING FEVER.". Coronavirus screen: Client denies travel out of the [place] in the last 14 days. Ebola Screen: Patient denies travel to an Ebola-affected area in the 21 days before illness onset. No symptoms or risks identified at this time. Initial Sepsis Screen: Does the patient meet any 2 criteria? HR > 90 bpm. No. Patient's initial sepsis screen is negative. Does the patient have a suspected source of infection? No. Patient's initial sepsis screen is negative. Risk Assessment: Do you want to hurt yourself or someone else? Patient reports no desire to harm self or others. Onset of symptoms was June 28, 2024. 21:12 Method Of Arrival: Ambulatory cm10 21:12 Acuity: VALENTINE 4 cm10 Triage Assessment: 21:14 General: Appears in no apparent distress. uncomfortable, Behavior is calm, cooperative. cm10 Neuro: No deficits noted. Level of Consciousness is awake, alert, obeys commands, Oriented to person, place, time, situation, Appropriate for age. Respiratory: No deficits noted. Airway is patent Respiratory effort is even, unlabored, Respiratory pattern is regular, symmetrical. Historical: - Allergies: 21:14 NKA; cm10 - PMHx: 21:14 Stomach ulcer; cm10 - Immunization history:: Adult Immunizations up to date. - Infectious Disease History:: Denies. - Social history:: Smoking status: Patient denies any tobacco usage or history of. Screenin:[facility] ED Fall Risk Assessment (Adult) History of falling in the last 3 months, ha1 including since admission No falls in past 3 months (0 pts) Confusion or Disorientation No (0 pts) Intoxicated or Sedated No (0 pts) Impaired Gait No (0 pts) Mobility Assist Device Used No (0 pt) Altered Elimination No (0 pt) Score/Fall Risk Level 0 - 2 = Low Risk Oriented to surroundings, Maintained a safe environment, Hourly rounding (assess needs \\T\\ fall precautionary measures) done. Abuse screen: Denies threats or abuse. Denies injuries from another. Nutritional screening: No deficits noted. Tuberculosis screening: No symptoms or risk factors identified. Assessment: 23:56 Reassessment: Patient and/or family updated on plan of care and expected duration. Pain ha1 level reassessed. Patient is alert, oriented x 3, equal unlabored respirations, skin warm/dry/pink. Vital Signs: 21:12 BP 130 / 93; Pulse 78; Resp 16; Temp 98.5(O); Pulse Ox 100% on R/A; Weight 74.84 kg; cm10 Height 5 ft. 2 in. ; Pain 7/10; 23:58 BP 128 / 90; Pulse 75; Resp 16 S; Temp 98.9; Pulse Ox 100% on R/A; ha1 21:12 Body Mass Index 30.18 (74.84 kg, 157.48 cm) cm10 21:12 Pain Scale: Adult cm10 ED Course: 06/27 21:14 Patient has correct armband on for positive identification. Call light in reach. Side ha1 rails up X 1. 16 20:18 Patient arrived in ED. im 20:19 Radha Barreto PA-C is PHCP. sb4 20:19 Iam Gilbert MD is Attending Physician. sb4 21:14 Triage completed. cm10 21:14 Arm band placed on right wrist. Patient placed in waiting room. cm10 21:45 Chest Pa And Lat (2 Views) XRAY In Process Unspecified. EDMS 23:56 No provider procedures requiring assistance completed. Patient did not have IV access ha1 during this emergency room visit. 23:57 Provided Education on: medication administration . ha1 Administered Medications: No medications were administered Medication: 23:57 VIS not applicable for this client. ha1 Outcome: 23:47 Discharge ordered by . sb4 23:56 Discharged to home ambulatory, ha1 23:56 Condition: stable 23:56 Discharge instructions given to patient, Instructed on discharge instructions, follow up and referral plans. medication usage, Demonstrated understanding of instructions, follow-up care, medications, Prescriptions given X 2, 23:58 Patient left the ED. ha1 Signatures: Dispatcher [employer] EDMS Marizol Brooks, RN RN [email or web address] Radha Barreto PA-C PAEdwina sb4 Gail Caldwell Clarissa RN RN cm10
--- NOTE | 2024-06-28 23:47 | EDPHYS ---
Physician Documentation [facility] Name: Mrianda Cruz Age: 28 yrs Sex: Female : 1995 Arrival Date: 06/28/2024 Time: 20:16 Bed DX3 Private MD: ED Physician Iam Gilbert HPI: 06/28 21:15 This 28 yrs old Female presents to ER via Ambulatory with complaints of Cough - blood, sb4 Flu Symptoms. 21:15 flu like symptoms x 3 days- cough, congestion, fever, sore throat, hoarse voice. states sb4 that this evening she coughed up a "chunk of her tonsil and blood" so came to the ED for further evaluation. 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 has taken nyquil intermittently without significant improvement in symptoms. Historical: - Allergies: 21:14 NKA; cm10 - PMHx: 21:14 Stomach ulcer; cm10 - Immunization history:: Adult Immunizations up to date. - Infectious Disease History:: Denies. - Social history:: Smoking status: Patient denies any tobacco usage or history of. ROS: 21:15 Cardiovascular: Negative for chest pain, palpitations, and edema, sb4 21:15 Constitutional: Positive for fever, 21:15 ENT: Positive for hoarseness, nasal discharge, sinus congestion, sore throat, 21:15 Respiratory: Positive for cough, "sounds productive", 21:15 All other systems are negative, Exam: 21:15 Constitutional: This is a well developed, well nourished patient who is awake, alert, sb4 and in no acute distress. Head/Face: Normocephalic, atraumatic. Eyes: Extra-ocular motions intact. Periorbital areas with no swelling, redness, or edema. ENT: Mucous membranes moist. Cardiovascular: Regular rate and rhythm with a normal S1 and S2. Respiratory: No increased work of breathing, no retractions or nasal flaring. Abdomen/GI: Soft, non-tender, no distension. Skin: Warm, dry with normal turgor. Normal color with no rashes, no lesions, and no evidence of cellulitis. Vital Signs: 21:12 BP 130 / 93; Pulse 78; Resp 16; Temp 98.5(O); Pulse Ox 100% on R/A; Weight 74.84 kg; cm10 Height 5 ft. 2 in. ; Pain 7/10; 23:58 BP 128 / 90; Pulse 75; Resp 16 S; Temp 98.9; Pulse Ox 100% on R/A; ha1 21:12 Body Mass Index 30.18 (74.84 kg, 157.48 cm) cm10 21:12 Pain Scale: Adult cm10 MDM: 21:10 Medical Screening Exam initiated sb4 23:46 Data reviewed: vital signs, nurses notes, lab test result(s), radiologic studies, and sb4 as a result, I will discharge patient. Counseling: I had a detailed discussion with the patient and/or guardian regarding the historical points, exam findings, and any diagnostic results supporting the discharge/admit diagnosis, the presence of at least one elevated blood pressure reading (>120/80) during this emergency department visit, lab results, radiology results, to return to the emergency department if symptoms worsen or persist or if there are any questions or concerns that arise at home. 06/28 21:14 Order name: SARS RAPID; Complete Time: 23:45 sb4 06/28 21:14 Order name: Flu; Complete Time: 23:39 sb4 06/28 21:14 Order name: Strep; Complete Time: 23:39 sb4 06/28 21:14 Order name: RSV; Complete Time: 23:39 sb4 06/28 23:41 Order name: Throat Culture EDMS 06/28 21:14 Order name: Chest Pa And Lat (2 Views) XRAY; Complete Time: 22:47 sb4 Administered Medications: No medications were administered Disposition: 06/29 05:24 Co-signature as Attending Physician, Iam Gilbert MD I agree with the assessment sp4 and plan of care. I reviewed the patient's care provided by the Advanced Practice Provider and agree with the diagnosis and treatment plan. Disposition Summary: 06/28/24 23:47 Discharge Ordered Notes: Location: Home sb4 Problem: new sb4 Symptoms: have improved sb4 Condition: Stable sb4 Diagnosis - Acute upper respiratory infection, unspecified sb4 Followup: sb4 - With: Emergency Department - When: As needed - Reason: Trouble breathing, Worsening of condition Discharge Instructions: - Discharge Summary Sheet sb4 - Upper Respiratory Infection, Adult, [id number] sb4 Forms: - Work release form sb4 - Antibiotic Education sb4 - Patient Portal Instructions sb4 - Leadership Thank You Letter sb4 Prescriptions: - azithromycin 250 mg Oral tablet - take 1 dose pack ORAL route as directed on dose pack For 250 mg dose pack: take sb4 500 mg today (day 1), then 250 mg for 4 days (days 2-5); 1 Pack; Refills: 0, Product Selection Permitted - Prednisone 20 mg Oral Tablet - take 1 tablet ORAL route every 12 hours for 5 days; 10 tablet; Refills: 0, sb4 Product Selection Permitted Signatures: Dispatcher [employer] EDRadha Méndez, BEN CONTRERAS sb4 Iam Gilbert MD MD sp4 Debbie Suarez RN RN cm10 Corrections: (The following items were deleted from the chart) 06/28 21:15 21:15 SARS-COV-2 Antigen Rapid+I.LAB.BRZ ordered. EDMS EDMS 21:15 21:15 Influenza Screen (A \\T\\ B)+BA.LAB.BRZ ordered. EDMS EDMS 21:15 21:15 Group A Streptococcus Rapid Sc+BA.LAB.BRZ ordered. EDMS EDMS 21:15 21:15 Respiratory Syncytial Virus Ag+BA.LAB.BRZ ordered. EDMS EDMS
[2024-06-29 00:47] VITALS: O2SAT 100
[2024-06-29 00:49] VITALS: BP 128/90; TEMP 98.9
== END 2024-06-28 23:58 | disposition home or self-care (01) ==
LOC: ER 20:16
DX: J06.9 Acute upper respiratory infection, unspecified (principal); Z11.52 Encounter for screening for COVID-19
CPT/HCPCS: 36415; 71046; 87070; 87081; 87804; 87807; 87811; 99283